=== PATIENT | female | born 1995 | race American Indian/Alaskan Native ===

== ENCOUNTER 2019-07-18 13:03 | Emergency (ER) | payer OTHER ==
[2019-07-18 13:12] VITALS: BP 105/76
--- NOTE | 2019-07-18 13:43 | Event Note ---
ED Screening Note Date of service: 07/18/19 Time: 13:40 ED Screening Note: This is a 24 y.o. F. that presents to the ER with pelvic pain and vaginal bleeding that started today. Patient is 11 weeks . Followed by [facility]. LMP 05/09/2019, A1 This initial assessment/diagnostic orders/clinical plan/treatment(s) is/are subject to change based on patients health status, clinical progression and re- assessment by fellow clinical providers in the ED. Further treatment and workup at subsequent clinical providers discretion. Patient/guardian urged not to elope from the ED as their condition may be serious if not clinically assessed and managed. Initial orders include: Labs and OB US
[2019-07-18 14:26] LABS: Basophils % (Auto) 0.2 % (0.0-1.8); Eosinophils # (Auto) 0.2 K/mm3 (0.0-0.4); Eosinophils % (Auto) 1.4 % (0.0-4.3); Hematocrit 38.2 % (30.3-42.9); Hemoglobin 12.8 gm/dl (10.1-14.3); Lymphocytes # (Auto) 2.4 K/mm3 (1.2-5.4); Lymphocytes % (Auto) 20.2 % (13.4-35.0); Mean Corpuscular HGB Conc 34 % (30-34); Mean Corpuscular Volume 94 fl (79-97); Monocytes # (Auto) 0.8 K/mm3 (0.0-0.8); Monocytes % (Auto) 6.5 % (0.0-7.3); Platelet Count 240 K/mm3 (140-440); Red Blood Count 4.08 M/mm3 (3.65-5.03); Red Cell Distribution Width 14.3 % (13.2-15.2)
[2019-07-18 15:01] LABS: Bilirubin,Urine NEG (Negative); Blood,Urine LG (Negative); Color,Urine Yellow (Yellow); Mucus,Urine FEW /HPF; Urobilinogen,Urine < 2.0 mg/dL (<2.0)
[2019-07-18 15:02] LABS: RBC,Urine > 182.0 /HPF (0.0-6.0)
--- NOTE | 2019-07-18 15:18 | Ultrasound Report ---
ULTRASOUND OBSTETRIC INDICATION / CLINICAL INFORMATION: 11 wks gest, vag bleeding and pelvic pain. Clinical Gestational Age (GA): 11.4 weeks.days TECHNIQUE: Transabdominal and Transvaginal. Color Doppler imaging was utilized. COMPARISON: None available. FINDINGS: GESTATIONAL SAC: Well-defined oval shape and intrauterine in location. YOLK SAC: Not visualized. EMBRYO/FETUS: No significant abnormality. - [place]-Rump Length = 4.8 cm = 11.4 weeks.days - Heart Rate, beats per minute (if present) = 170 Small crescentic hypoechoic collection adjacent to the gestational sac likely representing a small millan bchorionic hemorrhage measuring 1.2 x 0.5 cm. Developing anterior placenta is marginal at this time. ADNEXA: Right ovary not well visualized. FREE FLUID: None. ADDITIONAL FINDINGS: None. IMPRESSION: 1. Single, living intrauterine with estimated sonographic age of 11.4 weeks.days. 2. Possible small subchorionic hemorrhage. Signer Name: Marina Canales MD Signed: 07/18/2019 3:13 PM Workstation Name: [id number]
--- NOTE | 2019-07-18 15:24 | Ultrasound Report ---
ULTRASOUND OBSTETRIC INDICATION / CLINICAL INFORMATION: 11 wks gest, vag bleeding and pelvic pain. Clinical Gestational Age (GA): 11.4 weeks.days TECHNIQUE: Transabdominal and Transvaginal. Color Doppler imaging was utilized. COMPARISON: None available. FINDINGS: GESTATIONAL SAC: Well-defined oval shape and intrauterine in location. YOLK SAC: Not visualized. EMBRYO/FETUS: No significant abnormality. - [place]-Rump Length = 4.8 cm = 11.4 weeks.days - Heart Rate, beats per minute (if present) = 170 Small crescentic hypoechoic collection adjacent to the gestational sac likely representing a small millan bchorionic hemorrhage measuring 1.2 x 0.5 cm. Developing anterior placenta is marginal at this time. ADNEXA: Right ovary not well visualized. FREE FLUID: None. ADDITIONAL FINDINGS: None. IMPRESSION: 1. Single, living intrauterine with estimated sonographic age of 11.4 weeks.days. 2. Possible small subchorionic hemorrhage. Signer Name: Marina Canales MD Signed: 07/18/2019 3:19 PM Workstation Name: [id number]
--- NOTE | 2019-07-18 15:30 | Emergency Department Report ---
ED HPI - General Chief complaint: Vaginal Bleeding Stated complaint: 11 WKS /BLEEDING Time Seen by Provider: 07/18/19 13:39 Source: patient Mode of arrival: Ambulatory Limitations: No Limitations - History of Present Illness Initial comments: Patient is a 24-year-old female presents emergency room with complaints of vaginal bleeding that began at 12:30 PM today. She states that the bleeding was heavy for approximately one hour and then significantly improved. She states she is currently 11 weeks . She states her PAWN BROKER is [employer]. She states that she had some mild lower abdominal cramping. She denies any fever, urinary symptoms, back pain, vomiting, diarrhea, any other symptoms. She denies any past medical history or allergies medications. She states her last menstrual cycle was 05/09/2019. She denies any complication with her prior . /P:1/: 1 - Related Data Allergies Allergy/AdvReac Type Severity Reaction Status Date / Time No Known Allergies Allergy Unverified 07/18/19 13:08 ED Review of Systems ROS: Stated complaint: 11 WKS /BLEEDING Other details as noted in HPI Comment: All other systems reviewed and negative ED Past Medical Hx - Past Medical History Previous Medical History?: No - Surgical History Additional Surgical History: breat augmentation - Social History Smoking Status: Never Smoker ED Physical Exam - General Limitations: No Limitations General appearance: alert, in no apparent distress - Head Head exam: Present: atraumatic, normocephalic - Eye Eye exam: Present: normal appearance - ENT ENT exam: Present: mucous membranes moist - Respiratory Respiratory exam: Present: normal lung sounds bilaterally. Absent: respiratory distress, wheezes, rales, rhonchi, stridor, chest wall tenderness, accessory muscle use, decreased breath sounds, prolonged expiratory - Cardiovascular Cardiovascular Exam: Present: regular rate, normal rhythm, normal heart sounds. Absent: systolic murmur, diastolic murmur, rubs, gallop - GI/Abdominal GI/Abdominal exam: Present: soft, normal bowel sounds. Absent: distended, tenderness, guarding, rebound, rigid - Neurological Exam Neurological exam: Present: alert, oriented X3 - Psychiatric Psychiatric exam: Present: normal affect, normal mood - Skin Skin exam: Present: warm, dry, intact ED Course Vital Signs 07/18/19 13:11 Temperature 99.0 F Pulse Rate 103 H Respiratory 15 Rate Blood Pressure 105/76 O2 Sat by Pulse 96 Oximetry ED Medical Decision Making - Lab Data Result diagrams: 07/18/19 13:57 Lab Results 07/18/19 07/18/19 07/18/19 Range/Units 13:57 13:57 13:57 WBC 11.9 H (4.5-11.0) K/mm3 RBC 4.08 (3.65-5.03) M/mm3 Hgb 12.8 (10.1-14.3) gm/dl Hct 38.2 (30.3-42.9) % MCV 94 (79-97) fl MCH 32 (28-32) pg MCHC 34 (30-34) % RDW 14.3 (13.2-15.2) % Plt Count 240 (140-440) K/mm3 Lymph % (Auto) 20.2 (13.4-35.0) % [place] % (Auto) 6.5 (0.0-7.3) % Eos % (Auto) 1.4 (0.0-4.3) % Baso % (Auto) 0.2 (0.0-1.8) % Lymph # 2.4 (1.2-5.4) K/mm3 [place] # 0.8 (0.0-0.8) K/mm3 Eos # 0.2 (0.0-0.4) K/mm3 Baso # 0.0 (0.0-0.1) K/mm3 Seg Neutrophils % 71.7 H (40.0-70.0) % Seg Neutrophils # 8.6 H (1.8-7.7) K/mm3 HCG, Quant 33090 H (0-4) mIU/mL Urine Color (Yellow) Urine Turbidity (Clear) Urine pH (5.0-7.0) Ur Specific [place] (1.003-1.030) Urine Protein (Negative) mg/dL Urine Glucose (UA) (Negative) mg/dL Urine Ketones (Negative) mg/dL Urine Blood (Negative) Urine Nitrite (Negative) Urine Bilirubin (Negative) Urine Urobilinogen (<2.0) mg/dL Ur Leukocyte Esterase (Negative) Urine WBC (Auto) (0.0-6.0) /HPF Urine RBC (Auto) (0.0-6.0) /HPF Urine Mucus /HPF Blood Type B POSITIVE 07/18/19 Range/Units 14:02 WBC (4.5-11.0) K/mm3 RBC (3.65-5.03) M/mm3 Hgb (10.1-14.3) gm/dl Hct (30.3-42.9) % MCV (79-97) fl MCH (28-32) pg MCHC (30-34) % RDW (13.2-15.2) % Plt Count (140-440) K/mm3 Lymph % (Auto) (13.4-35.0) % [place] % (Auto) (0.0-7.3) % Eos % (Auto) (0.0-4.3) % Baso % (Auto) (0.0-1.8) % Lymph # (1.2-5.4) K/mm3 [place] # (0.0-0.8) K/mm3 Eos # (0.0-0.4) K/mm3 Baso # (0.0-0.1) K/mm3 Seg Neutrophils % (40.0-70.0) % Seg Neutrophils # (1.8-7.7) K/mm3 HCG, Quant (0-4) mIU/mL Urine Color Yellow (Yellow) Urine Turbidity Cloudy (Clear) Urine pH 6.0 (5.0-7.0) Ur Specific [place] 1.023 (1.003-1.030) Urine Protein 100 mg/dl (Negative) mg/dL Urine Glucose (UA) Neg (Negative) mg/dL Urine Ketones Neg (Negative) mg/dL Urine Blood Lg (Negative) Urine Nitrite Neg (Negative) Urine Bilirubin Neg (Negative) Urine Urobilinogen < 2.0 (<2.0) mg/dL Ur Leukocyte Esterase Neg (Negative) Urine WBC (Auto) 3.0 (0.0-6.0) /HPF Urine RBC (Auto) > 182.0 (0.0-6.0) /HPF Urine Mucus Few /HPF Blood Type - Radiology Data Radiology results: report reviewed ULTRASOUND OBSTETRIC INDICATION / CLINICAL INFORMATION: 11 wks gest, vag bleeding and pelvic pain. Clinical Gestational Age (GA): 11.4 weeks.days TECHNIQUE: Transabdominal and Transvaginal. Color Doppler imaging was utilized. COMPARISON: None available. FINDINGS: GESTATIONAL SAC: Well-defined oval shape and intrauterine in location. YOLK SAC: Not visualized. EMBRYO/FETUS: No significant abnormality. - [place]-Rump Length = 4.8 cm = 11.4 weeks.days - Heart Rate, beats per minute (if present) = 170 Small crescentic hypoechoic collection adjacent to the gestational sac likely representing a small subchorionic hemorrhage measuring 1.2 x 0.5 cm. Developing anterior placenta is marginal at this time. ADNEXA: Right ovary not well visualized. FREE FLUID: None. ADDITIONAL FINDINGS: None. IMPRESSION: 1. Single, living intrauterine with estimated sonographic age of 11.4 weeks.days. 2. Possible small subchorionic hemorrhage. Signer Name: Marina Canales MD Signed: 07/18/2019 3:13 PM Workstation Name: [id number] Transcribed By: DT Dictated By: Zbigniew Canales MD Electronically Authenticated By: Zbigniew Canales MD Signed Date/Time: 07/18/19 1513 - Medical Decision Making Patient is a 24-year-old female presents emergency room with complaints of vaginal bleeding that began at 12:30 PM today. She states that the bleeding was heavy for approximately one hour and then significantly improved. She states she is currently 11 weeks . She states her PAWN BROKER is [employer]. She states that she had some mild lower abdominal cramping. She denies any fever, urinary symptoms, back pain, vomiting, diarrhea, any other symptoms. She denies any past medical history or allergies medications. She states her last menstrual cycle was 05/09/2019. She denies any complication with her prior . /P:1/: 1. Vitals are stable. No abdominal tenderness on exam. Labs are stable. UA without evidence [place] [address]. pt is Rh+. OB US performed and shows 1. Single, living intrauterine with estimated sonographic age of 11.4 weeks.days. 2. Possible small subchorionic hemorrhage. Discussed ultrasound findings with patient and patient given ultrasound report. Discussed threatened miscarriage and need for close OB follow-up. advised pt please practice pelvic rest. Do not engage in sexual intercourse or rigorous exercise. Follow-up with your PAWN BROKER in the next 2 days. Return to the emergency room for any new or worsening symptoms. - Differential Diagnosis IUP, ectopic, placenta previa, subchorionic hemorrhage, miscarriage Critical care attestation.: If time is entered above; I have spent that time in minutes in the direct care of this critically ill patient, excluding procedure time. ED Disposition Clinical Impression: Threatened miscarriage Subchorionic hemorrhage Qualifiers: Fetus number: single or unspecified fetus Trimester: first trimester Qualified Code(s): O41.8X10 - Other specified disorders of amniotic fluid and membranes, first trimester, not applicable or unspecified Disposition: DC-01 TO HOME OR SELFCARE Is pt being admited?: No Does the pt Need Aspirin: No Condition: Stable Instructions: Threatened Miscarriage (ED) Additional Instructions: Please practice pelvic rest. Do not engage in sexual intercourse or rigorous exercise. Follow-up with your PAWN BROKER in the next 2 days. Return to the emergency room for any new or worsening symptoms. Referrals: [facility] [Provider Group] - 2-3 Days Time of Disposition: 15:30 Print Language: SERBIAN
== END 2019-07-18 15:44 | disposition home or self-care (01) ==
LOC: ED 13:03
DX: O20.0 Threatened abortion (principal); O20.8 Other hemorrhage in early pregnancy; Z98.890 Other specified postprocedural states; Z3A.11 11 weeks gestation of pregnancy
CPT/HCPCS: 36415; 76801; 76817; 81001; 84702; 85025; 86900; 86901

== ENCOUNTER 2020-02-02 16:32 | Outpatient (CLI) | payer OTHER ==
[2020-02-02 16:57] VITALS: BP 119/66
--- NOTE | 2020-02-02 17:53 | Ultrasound Report ---
ULTRASOUND OBSTETRIC LIMITED ULTRASOUND BIOPHYSICAL PROFILE INDICATION / CLINICAL INFORMATION: WELLBEING. Pelvic pain. Clinical Gestational Age (GA): 11.4 weeks.days COMPARISON: None available. FINDINGS: BREATHING MOVEMENT = 2 GROSS BODY MOVEMENT = 2 TONE = 2 QUALITATIVE AMNIOTIC FLUID VOLUME = 2 TOTAL BIOPHYSICAL SCORE = 8/8 HEART RATE (beats per minute): 154 AMNIOTIC FLUID INDEX (cm) = 11.5 (normal = 7-24 cm) PRESENTATION: Cephalic. ADDITIONAL FINDINGS: None. IMPRESSION: 1. Biophysical Score = 8/8 2. Normal amniotic fluid index. Signer Name: Marina Canales MD Signed: 02/02/2020 5:49 PM Workstation Name: [id number]
== END 2020-02-02 17:58 | disposition home or self-care (01) ==
LOC: TRG 16:32 → APU 16:34 → TRG 17:58
PROVIDERS: ATTEND Obstetrics & Gynecology
DX: O36.8130 Decreased fetal movements, third trimester, not applicable or unspecified (principal); Z3A.40 40 weeks gestation of pregnancy
CPT/HCPCS: 59025; 76815; 76819

== ENCOUNTER 2020-02-09 08:50 | Inpatient (IN) | payer OTHER ==
[2020-02-09] MEDS ORDERED: LACTATED RINGERS 1,000 ML ONE (09:29)
[2020-02-09] MEDS ORDERED: TERBUTALINE 1 MG/1 ML INJ SUB-Q PRN (10:53)
[2020-02-09] MEDS ORDERED: NALOXONE 0.4 MG/1 ML INJ IV PRN (10:53)
[2020-02-09] MEDS ORDERED: ONDANSETRON 4 MG/2 ML INJ IV PRN (10:53)
[2020-02-09] MEDS ORDERED: BUTORPHANOL 2 MG/1 ML INJ IV PRN (10:53)
[2020-02-09] MEDS ORDERED: ePHEDrine SULFATE 50 MG/1 ML INJ IV PRN (10:53)
[2020-02-09] MEDS ORDERED: TERBUTALINE 1 MG/1 ML INJ IVP PRN (10:53)
[2020-02-09] MEDS ORDERED: LIDOCAINE (2%) 20 MG/1 ML VIAL 20 ML MDV INFILTRATI ONE (10:53)
[2020-02-09] MEDS ORDERED: MINERAL OIL 30 ML ORAL LIQD PO PRN (10:53)
[2020-02-09] MEDS ORDERED: fentaNYL 100 MCG/2 ML INJ IV PRN (10:53)
[2020-02-09 10:54] LABS: Hematocrit 34.4 % (30.3-42.9); Hemoglobin 12.1 gm/dl (10.1-14.3); Mean Corpuscular HGB Conc 35 % (30-34); Mean Corpuscular Volume 94 fl (79-97); Platelet Count 174 K/mm3 (140-440); Red Blood Count 3.67 M/mm3 (3.65-5.03); Red Cell Distribution Width 14.3 % (13.2-15.2)
[2020-02-09] MEDS ORDERED: DINOPROSTONE 10 MG VAG SUPP VG ONE (11:00)
[2020-02-09] MEDS ORDERED: OXYTOCIN 20 UNIT/1000ML DRIP 20 UNITS/1,000 ML BAG IV SCH (11:00)
[2020-02-09] MEDS ORDERED: LACTATED RINGERS 1,000 ML IV SCH (11:00)
--- NOTE | 2020-02-09 12:58 | History and Physical Report ---
History of Present Illness Date of examination: 02/09/20 Chief complaint: scheduled induction History of present illness: Pt is a 24 year old female LEILA 02/02/20at 41w0d who presents for induction of labor secondary to postdates. She denies leakage of fluid or vaginal bleeding. She has had care at [facility] since 12 weeks complicated by subchorionic hemorrhage, COVID-19 infection (positive test on 12/01/19 followed by negative test on 12/31/19), EIF s/p MFM referral, placental lakes, and thrombocytopenia. She is GBS negative. Past History Past Medical History: no pertinent history, hematologic disorders (thrombocyto penia ) Past Surgical History: breast surgery (breast augmentation ) LOG CUT OFF SAWYER History: chlamydia (treated with negative test of cure ) Family/Genetic History: none Social history: no significant social history - Obstetrical History Expected Date of Delivery: 02/02/20 Actual Gestation: 41 Week(s) 0 Day(s) : 3 Para: 1 Hx # Term Pregnancies: 0 Number of Pregnancies: 0 Spontaneous Abortions: 0 Induced : 1 Number of Living Children: 1 Medications and Allergies Allergies Allergy/AdvReac Type Severity Reaction Status Date / Time No Known Allergies Allergy Unverified 02/09/20 09:26 Home Medications Medication Instructions Recorded Confirmed Last Taken Type Iron 1 tab PO DAILY 02/09/20 02/09/20 02/08/20 History Active Meds: Active Medications Butorphanol Tartrate (Stadol) 2 mg IV Q2H PRN PRN Reason: Pain , Severe (7-10) Ephedrine Sulfate (Ephedrine Sulfate) 10 mg IV Q2M PRN PRN Reason: Hypotension Fentanyl (Sublimaze) 100 mcg IV Q2H PRN PRN Reason: Pain,Severe (7-10) LABOR PAIN Oxytocin/Sodium Chloride (Pitocin/Ns 20 Unit/1000ml Drip) 20 units in 1,000 mls @ 125 mls/hr IV DIRECT HORACE Oxytocin/Sodium Chloride (Pitocin/Ns 30 Unit/500ml) 30 units in 500 mls @ 2 mls/hr IV TITR HORACE; Protocol Lactated Ringer's (Lactated Ringers) 1,000 mls @ 125 mls/hr IV DIRECT HORACE Mineral Oil (Mineral Oil) 30 ml PO QHS PRN PRN Reason: Constipation Naloxone HCl (Naloxone) 0.1 mg IV Q2MIN PRN PRN Reason: Res Rate </= 8 or 02 SAT < 92% Ondansetron HCl (Zofran) 4 mg IV Q8H PRN PRN Reason: Nausea And Vomiting Terbutaline Sulfate (Brethine) 0.25 mg SUB-Q ONCE PRN PRN Reason: Hyperstimulation/Hypertonicity Terbutaline Sulfate (Brethine) 0.25 mg IVP ONCE PRN PRN Reason: Hyperstimulation/Hypertonicity Review of Systems All systems: negative - Vital Signs Vital signs: Vital Signs Temp Pulse Resp BP Pulse Ox 98.7 F 75 16 108/71 98 02/09/20 09:31 02/09/20 09:31 02/09/20 09:31 02/09/20 09:31 02/09/20 09:31 Temp Pulse Resp BP Pulse Ox 98.7 F 71 16 108/71 99 02/09/20 09:31 02/09/20 10:04 02/09/20 09:31 02/09/20 09:32 02/09/20 10:04 - Physical Exam Abdomen: Positive: soft (gravid, obese ) Uterus: Positive: enlarged (gravid ) - Obstetrical FHR: auscultation normal Uterine Contraction Monitor Mode: External Cervical Dilatation: 2 (per RN ) Uterine Contraction Pattern: Irregular Uterine Tone Measurement Phase: Resting Uterine Contraction Intensity: Mild Results Result Diagrams: 02/09/20 09:48 Abnormal lab results 02/09/20 Range/Units 09:48 MCH 33 H (28-32) pg MCHC 35 H (30-34) % All other labs normal. Assessment and Plan A: IUP at 41w0d Morbid Obesity H/o Thrombocytopenia COVID-19 infection (positive test on 12/01/19 followed by negative test on 12/31/19) EIF s/p MFM referral Placental lakes GBS negative P: Admit to labor and delivery Cervical ripening with cervidil Routine intrapartum care
[2020-02-09] MEDS: LACTATED RINGERS 1,000 ML IV SCH ×3 (13:58→23:53)
[2020-02-09] MEDS ORDERED: OXYTOCIN DRIP 30 UNITS/500 ML BAG IV SCH (23:00)
[2020-02-09] MEDS ORDERED: DEXMEDETOMIDINE 200 MCG/2 ML VIAL IV ONE (23:54)
[2020-02-10] MEDS ORDERED: NALOXONE 2 MG/2 ML INJ IV PRN (00:18)
[2020-02-10] MEDS ORDERED: ePHEDrine SULFATE 50 MG/1 ML INJ IV PRN (00:18)
--- NOTE | 2020-02-10 00:18 | Anesthesia Consultation ---
Anesthesia Consult and Med Hx Date of service: 02/10/20 - Airway Anesthetic Teeth Evaluation: Good ROM Head & Neck: Adequate Mental/Hyoid Distance: Adequate Mallampati Class: Class II Intubation Access Assessment: Probably Good - Pulmonary Exam CTA: Yes - Cardiac Exam Cardiac Exam: RRR - Pre-Operative Health Status ASA Pre-Surgery Classification: ASA3 Proposed Anesthetic Plan: Epidural - Pulmonary Hx Asthma: No - Cardiovascular System Hx Hypertension: No - Central Nervous System Hx Seizures: No Hx Psychiatric Problems: No - Endocrine Hx Renal Disease: No Hx Hypothyroidism: No Hx Hyperthyroidism: No - Hematic Hx Anemia: Yes Hx Sickle Cell Disease: No - Other Systems Hx Alcohol Use: No Hx Obesity: Yes - Additional Comments Anesthesia Medical History Comments: thrombocytopenia
--- NOTE | 2020-02-10 00:22 | Progress Note ---
Labor Epidural - Labor Epidural Start Time: 23:58 Stop Time: 00:07 Performed by:: IZABELLA ARGUETA Procedure: Patient is requesting epidural for labor pain. H&P, and labs reviewed. Procedure explained, questions answered, consent obtained. Patient in sitting position with blood pressure cuff and pulse ox on and working. Timeout performed immediately before start of procedure. Sterile betadine prep/drape. 3 mL 1% lidocaine skin wheal at L[3]-L[4]. 18-gauge Touhy epidural needle advanced to [id number] with saline at [7] cm. 27-gauge spinal needle advanced until clear, free-flowing CSF. Intrathecal dexmedetomidine [5] mcg administered and needle removed. Epidural catheter advanced to [12] cm, negative aspiration for blood and csf, negative test dose 3 ml 1.5% lidocaine with epinephrine. Sterile steri-strips and tegaderm applied, followed by tape reinforcement. Patient tolerated procedure well.
[2020-02-10] MEDS ORDERED: fentaNYL-BUPIV 2 MCG/ML-0.125% 200 MCG/100 ML BAG EPIDURAL SCH (01:00)
[2020-02-10] MEDS: LACTATED RINGERS 1,000 ML IV SCH (02:14)
--- NOTE | 2020-02-10 02:28 | Event Note ---
Date: 02/10/20 Pt comfortable with epidural. SVE: /-2. AROM- thin meconium. IUPC placed. Closely monitor maternal and status.
[2020-02-10] MEDS ORDERED: SODIUM CHLORIDE 0.9% 1000 ML 1,000 ML ONE (03:30)
[2020-02-10] MEDS ORDERED: SODIUM CHLORIDE 0.9% 1000 ML 1,000 ML VG SCH (03:45)
--- NOTE | 2020-02-10 04:16 | Event Note ---
Date: 02/10/20 Pt comfortable with epidural. Category II tracing. SVE: 9.5/100/-2. Closely monitor maternal and status.
[2020-02-10] MEDS ORDERED: LIDOCAINE (2%) 20 MG/1 ML VIAL 20 ML MDV INFILTRATI ONE (06:43)
--- NOTE | 2020-02-10 07:18 | Procedure Note ---
OB Delivery Note - Delivery Date of Delivery: 02/10/20 Surgeon: CRAIG GORDON Estimated blood loss: other (400 mL) - Vaginal Delivery presentation: vertex Delivery position: OA Intrapartum events: PROM->1hr before delivery, meconium, decreased FHT variability, mult. late decelerations, mult.variable deceleratio Delivery induction: misoprostol Delivery augmentation: rupture of membranes Delivery monitor: external FHT, internal uterine Route of delivery: Delivery placenta: spontaneous Delivery cord: other (Body cord ) Episiotomy: none Delivery laceration: 2nd degree Delivery repair: vicryl Anesthesia: local, epidural - A at 1 minute: 8 at 5 minutes: 9 Gender: Male (3439g (7lb 9oz) @ 0638 am)
[2020-02-10] MEDS ORDERED: LANOLIN/ZINC/DIMETHICONE (LANSINOH) 7 GM TP PRN ×2 (10:26)
[2020-02-10] MEDS ORDERED: WITCH HAZEL/ GLYCERIN PAD TP PRN (10:26)
[2020-02-10] MEDS ORDERED: HYDROcodone/ACETAMINOPHEN 5-325 MG TAB PO PRN (10:26)
[2020-02-10] MEDS ORDERED: BENZOCAINE/MENTHOL 20/0.5% TOP SPRAY 56 GM TP PRN (10:26)
[2020-02-10] MEDS ORDERED: ONDANSETRON 4 MG/2 ML INJ IV PRN (10:26)
[2020-02-10] MEDS ORDERED: ACETAMINOPHEN 325 MG TAB PO PRN (10:26)
[2020-02-10] MEDS ORDERED: OXYTOCIN 20 UNIT/1000ML DRIP 20 UNITS/1,000 ML BAG IV SCH (10:26)
[2020-02-10] MEDS ORDERED: PROMETHAZINE 25 MG TAB PO PRN (10:26)
[2020-02-10] MEDS ORDERED: PROMETHAZINE 25 MG RECT SUPP PR PRN (10:26)
[2020-02-10] MEDS ORDERED: diphenhydrAMINE 25 MG CAP PO PRN (10:26)
[2020-02-10] MEDS ORDERED: MAGNESIUM HYDROXIDE (MOM) ORAL LIQD UDC PO PRN (10:26)
[2020-02-10] MEDS: FERROUS SULFATE 325 MG TAB PO SCH ×2 (10:38→22:19)
[2020-02-10] MEDS: IBUPROFEN 600 MG TAB PO SCH ×3 (10:38→23:45)
--- NOTE | 2020-02-10 18:53 | Post Anesthesia Evaluation ---
- Post Anesthesia Evaluation Patient Participated: Yes Airway Patent: Yes Stable Respiratory Function: Yes Nausea/Vomiting: No Temp > 96.8F: Yes Pain Manageable: Yes Adequeate Hydration: Yes Anesthesia Complications: No Block Receding Appropriately: Yes
[2020-02-10 19:51] LABS: Hematocrit 31.7 % (30.3-42.9); Hemoglobin 10.5 gm/dl (10.1-14.3)
[2020-02-11] MEDS: IBUPROFEN 600 MG TAB PO SCH (06:03)
[2020-02-11] MEDS ORDERED: MEASLES, MUMPS & RUBELLA 12,500 UNIT/0.5 ML VACCINE SUB-Q ONE (07:20)
[2020-02-11] MEDS ORDERED: DIPHtheria,PERTUSSIS(ACELL),TETANUS VACCINE/PF 0.5 ML VIAL IM ONE (07:21)
--- NOTE | 2020-02-11 08:26 | Progress Note ---
Assessment and Plan A: PPD1 s/p Vital signs stable Mild anemia due to blood loss P: Ferrous sulfate supplementation D/c to home today Subjective - Subjective Date of service: 02/11/20 Principal diagnosis: s/p Interval history: PPD1 s/p Patient reports: appetite normal, voiding normally, pain well controlled, ambulating normally : doing well, nursing well Objective - Vital Signs Latest vital signs: Vital Signs Temp Pulse Resp BP BP Pulse Ox 02/11/20 08:05 18 02/11/20 00:00 98.6 F 77 16 108/75 02/10/20 20:23 98.4 F 84 18 113/62 98 02/10/20 15:05 98.1 F 80 16 113/69 97 02/10/20 10:28 99.3 F 68 19 113/76 99 02/10/20 08:41 56 L 99/53 Intake and Output 02/10/20 02/11/20 02/11/20 23:59 07:59 15:59 Intake Total 300 200 Output Total 300 Balance 0 200 Intake: Oral 200 Intake, Free Water 300 Output: Urine 300 Void 300 Other: Total, Intake Amount 200 Total, Output Amount 300 # Voids Void 1 1 - Exam Lungs: Present: Normal air movement Abdomen: Present: soft. Absent: distention Uterus: Present: firm, fundal height below umbilicus. Absent: bogginess Extremities: Present: normal
--- NOTE | 2020-02-11 08:28 | Discharge Summary ---
Providers - Providers Date of Admission: 02/10/20 06:57 Date of discharge: 02/11/20 Attending physician: CRAIG GORDON Primary care physician: CRAIG GORDON Hospitalization Reason for admission: induction of labor, IUP at term Delivery: Episiotomy: none Laceration: 2nd degree Other procedures: none complications: none Discharge diagnosis: IUP at term delivered Condition at discharge: Good Disposition: DC-01 TO HOME OR SELFCARE Plan - Discharge Medications Prescriptions: Ferrous Sulfate [Feosol 325 MG tab] 325 mg PO BID #60 tablet Ibuprofen [Motrin] 600 mg PO Q6H PRN #60 tablet PRN Reason: Pain - Provider Discharge Summary Activity: routine, no sex for 6 weeks, no heavy lifting 4 weeks, no strenuous exercise Diet: routine Instructions: routine Additional instructions: [] Smoking cessation referral if applicable(refer to patient education folder for contact #) [] Refer to [facility]'s [facility] Booklet Call your doctor immediately for: * Fever > 100.5 * Heavy vaginal bleeding ( >1 pad per hour) * Severe persistent headache * Shortness of breath * Reddened, hot, painful area to leg or breast * Drainage or odor from incision. * Keep incision clean and dry at all times and follow doctor's instructions regarding bathing/showering - Follow up plan Follow up: LATANYA SEAY CNM [Advanced Practice Nurse] - 14 Days
[2020-02-11] MEDS: FERROUS SULFATE 325 MG TAB PO SCH (09:44)
[2020-02-11 12:23] VITALS: BP 107/67
== END 2020-02-11 12:55 | disposition home or self-care (01) | DRG 775 ==
LOC: TRG 08:50 → LD 08:50 → TRG 02-10 06:56 → LD 02-10 06:57 → OB 02-10 10:14
PROVIDERS: ADMIT Obstetrics & Gynecology; ATTEND Obstetrics & Gynecology
PROC: 10E0XZZ Delivery of Products of Conception, External Approach (ICD-10-PCS; principal; 2020-02-10)
PROC: 0KQM0ZZ Repair Perineum Muscle, Open Approach (ICD-10-PCS; 2020-02-10)
PROC: 3E0R3BZ Introduction of Anesthetic Agent into Spinal Canal, Percutaneous Approach (ICD-10-PCS; 2020-02-10)
PROC: 00HU33Z Insertion of Infusion Device into Spinal Canal, Percutaneous Approach (ICD-10-PCS; 2020-02-10)
PROC: 3E0P7VZ Introduction of Hormone into Female Reproductive, Via Natural or Artificial Opening (ICD-10-PCS; 2020-02-10)
PROC: 10907ZC Drainage of Amniotic Fluid, Therapeutic from Products of Conception, Via Natural or Artificial Opening (ICD-10-PCS; 2020-02-10)
PROC: 10H07YZ Insertion of Other Device into Products of Conception, Via Natural or Artificial Opening (ICD-10-PCS; 2020-02-10)
PROC: 3E0234Z Introduction of Serum, Toxoid and Vaccine into Muscle, Percutaneous Approach (ICD-10-PCS; 2020-02-11)
PROC: 3E0134Z Introduction of Serum, Toxoid and Vaccine into Subcutaneous Tissue, Percutaneous Approach (ICD-10-PCS; 2020-02-11)
DX: O48.0 Post-term pregnancy (principal); O77.0 Labor and delivery complicated by meconium in amniotic fluid; O76 Abnormality in fetal heart rate and rhythm complicating labor and delivery; O42.02 Full-term premature rupture of membranes, onset of labor within 24 hours of rupture; O99.214 Obesity complicating childbirth; E66.01 Morbid (severe) obesity due to excess calories; Z23 Encounter for immunization; O70.1 Second degree perineal laceration during delivery; O99.02 Anemia complicating childbirth; Z37.0 Single live birth; Z3A.41 41 weeks gestation of pregnancy
CPT/HCPCS: 36415; 85014; 85018; 85027; 86850; 86900; 86901; 88307; G0378; J2405; J2590; J3490; J7030; J7120